=== PATIENT | female | born 1940 | race Caucasian/White ===

== ENCOUNTER 2023-09-04 15:22 | Observation (INO) ==
[2023-09-04] MEDS ORDERED: Ondansetron 4 mg VIAL 2 MG/ML 2 ml VIAL IV ONE (15:56)
[2023-09-04] MEDS ORDERED: Morphine 4 MG/ML VIAL (1 ml) IV ONE (15:56)
[2023-09-04] MEDS ORDERED: NS 0.9% 500 ml BAG 500 ML IV SCH (16:00)
[2023-09-04 16:37] LABS: ABS Lymphocytes 1.1 10^3/uL (1.0-4.8); ABS Monocytes 0.5 10^3/uL (0.0-0.9); ABS Neutrophils 6.8 10^3/uL (1.5-7.6); ABS Nucleated RBC 0.02 10^3/ul; Hematocrit 39.1 % (35-45); Hemoglobin 12.8 g/dL (11.5-14.3); Lymphocyte % 12.5 %; Mean Corpuscular Hemoglobin 25.4 pg (27-33); Mean Corpuscular Hgb Conc 32.7 g/dL (31-36); Mean Corpuscular Volume 77.6 fL (80-97); Mean Platelet Volume 8.5 fL (7.5-11.2); Nucleated Red Blood Cells % 0.2 %/100WBC (0.0-0.8); Platelet Count 508 10^3/uL (150-450); Red Blood Count 5.04 10^6/uL (3.63-4.92); Red Cell Distribution Width 16.3 % (12-17); White Blood Count 8.5 10^3/uL (3.8-11.8)
[2023-09-04 16:49] LABS: Albumin 4.3 g/dL (3.2-5.2); Albumin/Globulin Ratio 1.3 (1-3); Calcium 8.4 mg/dL (8.6-10.3); Creatinine, Serum 1.07 mg/dL (0.51-0.95); Globulin 3.2 g/dL (2-4); Potassium 4.1 mmol/L (3.5-5.0); Total Bilirubin 0.5 mg/dL (0.2-1.0); Total Protein 7.5 g/dL (6.4-8.9); eGFR CKD-EPI 52.2 (>60)
[2023-09-04] MEDS ORDERED: Metoprolol Tartrate 5 mg VIAL 5 ml VIAL (1 mg/ml) IV PRN (18:06)
[2023-09-04] MEDS ORDERED: Morphine 2 MG/ML SYRINGE IV PRN (18:24)
[2023-09-04 18:45] LABS: High Sensitivity Troponin 1 Hr 40 pg/mL (<15)
[2023-09-04 19:36] LABS: Urine Appearance Cloudy; Urine Bilirubin Negative (Negative); Urine Blood Negative (Negative); Urine Color Yellow; Urine Glucose Negative (Negative); Urine Ketones 2+ (Negative); Urine Nitrite Negative (Negative); Urine Protein 1+(30 mg/dL) (Negative); Urine Specific Gravity 1.015 (1.002-1.030); Urine Urobilinogen Negative (Negative)
[2023-09-04 19:59] LABS: Urine Bacteria Absent (Absent); Urine Red Blood Cell Trace(0-2/hpf) (Absent); Urine Squamous Epithelial Cell Present (Absent); Urine White Blood Cell 2+(11-20/hpf) (Absent)
[2023-09-04 20:30] LABS: C Reactive Protein 3.86 mg/L (<8.01); Magnesium 2.6 mg/dL (1.9-2.7)
[2023-09-05 06:44] LABS: ABS Basophils 0.1 10^3/uL (0.0-0.1); ABS Lymphocytes 1.1 10^3/uL (1.0-4.8); ABS Monocytes 0.9 10^3/uL (0.0-0.9); ABS Neutrophils 8.3 10^3/uL (1.5-7.6); Eosinophil % 0.3 %; Hematocrit 35.5 % (35-45); Hemoglobin 11.3 g/dL (11.5-14.3); Lymphocyte % 10.9 %; Mean Corpuscular Hemoglobin 25.2 pg (27-33); Mean Corpuscular Hgb Conc 31.8 g/dL (31-36); Mean Corpuscular Volume 79.2 fL (80-97); Mean Platelet Volume 8.1 fL (7.5-11.2); Platelet Count 381 10^3/uL (150-450); Red Blood Count 4.48 10^6/uL (3.63-4.92); Red Cell Distribution Width 16.4 % (12-17); White Blood Count 10.3 10^3/uL (3.8-11.8)
[2023-09-05 08:22] LABS: Calcium 7.6 mg/dL (8.6-10.3); Magnesium 2.4 mg/dL (1.9-2.7); Potassium 4.2 mmol/L (3.5-5.0); eGFR CKD-EPI 56.6 (>60)
[2023-09-05] MEDS ORDERED: Senna TAB 8.6 mg TAB PO PRN (10:02)
[2023-09-05 10:54] LABS: PCO2 Arterial 21 mmHg (35-45); PO2 Arterial 116 mmHg (80-100)
[2023-09-05] MEDS ORDERED: Lactated Ringers 1000 ml BAG 1,000 ML IV ONE (11:05)
[2023-09-05] MEDS ORDERED: Enoxaparin 40 MG/0.4 ML SYR SUBCUT SCH (16:00)
[2023-09-05 16:02] LABS: Calcium 7.7 mg/dL (8.6-10.3); Creatinine, Serum 1.16 mg/dL (0.51-0.95); Potassium 4.6 mmol/L (3.5-5.0); eGFR CKD-EPI 47.4 (>60)
[2023-09-06 07:11] LABS: Calcium 7.6 mg/dL (8.6-10.3); Creatinine, Serum 1.03 mg/dL (0.51-0.95); Potassium 3.7 mmol/L (3.5-5.0); eGFR CKD-EPI 54.6 (>60)
[2023-09-06] MEDS ORDERED: Polyethylene Glycol 3350 17 GM PACKET PO SCH (09:00)
[2023-09-06 10:23] VITALS: BP 107/51
== END 2023-09-06 14:00 | disposition home or self-care (01) ==
LOC: EDHOLD 15:22 → ED 15:22 → MEDTELE 18:02 → SUATTDRO 18:02 → MEDTELE 22:10
PROVIDERS: ADMIT Internal Medicine; ATTEND Hospitalist

== ENCOUNTER 2023-09-25 19:28 | Inpatient (IN) ==
[2023-09-25] MEDS ORDERED: Lactated Ringers 1000 ml BAG 1,000 ML IV ONE ×2 (19:32→22:48)
[2023-09-25 19:47] LABS: ABS Lymphocytes 1.9 10^3/uL (1.0-4.8); ABS Monocytes 0.6 10^3/uL (0.0-0.9); ABS Nucleated RBC 0.02 10^3/ul; Hematocrit 45.6 % (35-45); Hemoglobin 14.6 g/dL (11.5-14.3); Lymphocyte % 22.2 %; Mean Corpuscular Hemoglobin 26.3 pg (27-33); Mean Corpuscular Hgb Conc 32.1 g/dL (31-36); Mean Corpuscular Volume 82.1 fL (80-97); Nucleated Red Blood Cells % 0.2 %/100WBC (0.0-0.8); Platelet Count 320 10^3/uL (150-450); Red Blood Count 5.56 10^6/uL (3.63-4.92); Red Cell Distribution Width 22.1 % (12-17); White Blood Count 8.5 10^3/uL (3.8-11.8)
[2023-09-25 20:15] LABS: Albumin/Globulin Ratio 1.3 (1-3); C Reactive Protein 3.88 mg/L (<8.01); Calcium 8.4 mg/dL (8.6-10.3); Creatinine, Serum 1.85 mg/dL (0.51-0.95); Globulin 3.1 g/dL (2-4); Magnesium 2.7 mg/dL (1.9-2.7); Potassium 5.1 mmol/L (3.5-5.0); Total Bilirubin 0.6 mg/dL (0.2-1.0); Total Protein 7.1 g/dL (6.4-8.9); eGFR CKD-EPI 27.1 (>60)
[2023-09-25 20:38] LABS: TSH Ultra Thyroid Stim Horm 12.45 mcIU/mL (0.34-5.60)
[2023-09-25 20:49] LABS: Venous Bicarbonate HCO3 13.2 mmol/L (24-28)
[2023-09-25] MEDS ORDERED: Piperacillin/Tazobac 3.375 BAG 3.375 GM/100 ML BAG IV ONE (21:15)
[2023-09-25 21:21] LABS: High Sensitivity Troponin 1 Hr 116 pg/mL (<15)
[2023-09-25 21:22] LABS: Free T4 1.05 ng/dL (0.61-1.12)
[2023-09-25 22:52] LABS: PCO2 Arterial 25 mmHg (35-45); PO2 Arterial 100 mmHg (80-100)
[2023-09-25 23:25] LABS: Calcium 7.8 mg/dL (8.6-10.3); Creatinine, Serum 1.72 mg/dL (0.51-0.95); Potassium 5.1 mmol/L (3.5-5.0); eGFR CKD-EPI 29.5 (>60)
[2023-09-26] MEDS ORDERED: NS 0.9% 1000 ml BAG 1,000 ML IV SCH (01:30)
[2023-09-26] MEDS ORDERED: Enoxaparin 30 MG/0.3 ML SYR SUBCUT SCH (03:30)
[2023-09-26 07:45] LABS: ABS Lymphocytes 0.8 10^3/uL (1.0-4.8); ABS Monocytes 0.8 10^3/uL (0.0-0.9); ABS Nucleated RBC 0.01 10^3/ul; Hematocrit 38.2 % (35-45); Hemoglobin 12.4 g/dL (11.5-14.3); Mean Corpuscular Hgb Conc 32.4 g/dL (31-36); Mean Corpuscular Volume 80.4 fL (80-97); Mean Platelet Volume 8.6 fL (7.5-11.2); Nucleated Red Blood Cells % 0.1 %/100WBC (0.0-0.8); Platelet Count 229 10^3/uL (150-450); Red Blood Count 4.76 10^6/uL (3.63-4.92); Red Cell Distribution Width 21.5 % (12-17); White Blood Count 7.6 10^3/uL (3.8-11.8)
[2023-09-26 08:02] LABS: Calcium 7.2 mg/dL (8.6-10.3); Creatinine, Serum 1.42 mg/dL (0.51-0.95); Potassium 4.5 mmol/L (3.5-5.0); eGFR CKD-EPI 37.2 (>60)
[2023-09-26] MEDS ORDERED: Lactated Ringers 1000 ml BAG 1,000 ML IV SCH (14:00)
[2023-09-27] MEDS: Enoxaparin 30 MG/0.3 ML SYR SUBCUT SCH (05:38)
[2023-09-27 06:21] LABS: ABS Lymphocytes 0.8 10^3/uL (1.0-4.8); ABS Monocytes 0.6 10^3/uL (0.0-0.9); ABS Neutrophils 4.4 10^3/uL (1.5-7.6); Hematocrit 33.5 % (35-45); Hemoglobin 11.1 g/dL (11.5-14.3); Lymphocyte % 14.3 %; Mean Corpuscular Hemoglobin 26.3 pg (27-33); Mean Corpuscular Hgb Conc 33.2 g/dL (31-36); Mean Corpuscular Volume 79.2 fL (80-97); Mean Platelet Volume 8.6 fL (7.5-11.2); Nucleated Red Blood Cells % 0.1 %/100WBC (0.0-0.8); Platelet Count 199 10^3/uL (150-450); Red Blood Count 4.22 10^6/uL (3.63-4.92); White Blood Count 5.9 10^3/uL (3.8-11.8)
[2023-09-27 06:37] LABS: Calcium 6.9 mg/dL (8.6-10.3); Creatinine, Serum 1.07 mg/dL (0.51-0.95); Magnesium 1.9 mg/dL (1.9-2.7); Phosphorus 1.9 mg/dL (2.5-5.0); Potassium 3.5 mmol/L (3.5-5.0); eGFR CKD-EPI 52.2 (>60)
[2023-09-27 07:03] LABS: Folate 8.11 ng/mL (5.90-24.80)
[2023-09-27] MEDS ORDERED: Magnesium Sulfate IV 1GM/100ML 1 GM/100 ML BAG IV ONE (07:36)
[2023-09-27] MEDS: KCL 20 MEQ/100 ML IVPREMIX 20 MEQ/100 ML BAG IV SCH ×2 (08:48→11:14)
[2023-09-27] MEDS ORDERED: Potassium Phosphate IV 15 MMOL in NS 0.9% 250 ml 250 ML IVPB ONE (10:39)
[2023-09-27] MEDS: Potassium & Sodium Phos 250 mg = 1 PACKET PO SCH (20:15)
[2023-09-28 01:02] LABS: Urine Appearance Cloudy; Urine Bilirubin Negative (Negative); Urine Blood Negative (Negative); Urine Color Yellow; Urine Glucose Negative (Negative); Urine Ketones 1+ (Negative); Urine Nitrite Negative (Negative); Urine Protein 1+(30 mg/dL) (Negative); Urine Specific Gravity 1.019 (1.002-1.030); Urine Urobilinogen Negative (Negative)
[2023-09-28 01:29] LABS: Urine Bacteria Absent (Absent); Urine Red Blood Cell Absent (Absent); Urine White Blood Cell Absent (Absent)
[2023-09-28] MEDS: Enoxaparin 30 MG/0.3 ML SYR SUBCUT SCH (05:47)
[2023-09-28 07:08] LABS: ABS Lymphocytes 1.2 10^3/uL (1.0-4.8); ABS Monocytes 0.3 10^3/uL (0.0-0.9); ABS Neutrophils 3.4 10^3/uL (1.5-7.6); Eosinophil % 0.3 %; Hematocrit 28.9 % (35-45); Hemoglobin 9.5 g/dL (11.5-14.3); Lymphocyte % 23.8 %; Mean Corpuscular Hemoglobin 26.2 pg (27-33); Mean Corpuscular Hgb Conc 32.8 g/dL (31-36); Mean Corpuscular Volume 79.8 fL (80-97); Mean Platelet Volume 8.5 fL (7.5-11.2); Platelet Count 143 10^3/uL (150-450); Red Blood Count 3.63 10^6/uL (3.63-4.92); Red Cell Distribution Width 21.3 % (12-17); White Blood Count 4.9 10^3/uL (3.8-11.8)
[2023-09-28] MEDS: Potassium & Sodium Phos 250 mg = 1 PACKET PO SCH ×4 (07:39→20:15)
[2023-09-28 09:05] LABS: Calcium 6.6 mg/dL (8.6-10.3); Creatinine, Serum 0.73 mg/dL (0.51-0.95); Potassium 3.8 mmol/L (3.5-5.0); eGFR CKD-EPI 82.6 (>60)
[2023-09-28 10:30] LABS: Ferritin 28.2 ng/mL (11-307)
[2023-09-28 14:30] LABS: Rapid COVID-19 Molecular Undetected (Undetected)
[2023-09-28] MEDS ORDERED: Potassium Chlor 20 meq TAB.ER PO ONE (14:50)
[2023-09-29] MEDS: Enoxaparin 30 MG/0.3 ML SYR SUBCUT SCH (06:41)
[2023-09-29 06:57] LABS: Hematocrit 30.8 % (35-45); Hemoglobin 10.1 g/dL (11.5-14.3); Mean Corpuscular Hemoglobin 26.1 pg (27-33); Mean Corpuscular Hgb Conc 32.7 g/dL (31-36); Mean Corpuscular Volume 79.8 fL (80-97); Mean Platelet Volume 8.5 fL (7.5-11.2); Platelet Count 146 10^3/uL (150-450); Red Blood Count 3.86 10^6/uL (3.63-4.92); Red Cell Distribution Width 21.8 % (12-17); White Blood Count 4.5 10^3/uL (3.8-11.8)
[2023-09-29 07:13] LABS: Creatinine, Serum 0.66 mg/dL (0.51-0.95); Magnesium 1.9 mg/dL (1.9-2.7); Potassium 4.5 mmol/L (3.5-5.0); eGFR CKD-EPI 88.1 (>60)
[2023-09-29 08:21] LABS: ABS Monocytes 0.3 10^3/uL (0.0-0.9); ABS Neutrophils 3.2 10^3/uL (1.5-7.6); Lymphocyte % 22.8 %; Nucleated Red Blood Cells % 0.1 %/100WBC (0.0-0.8)
[2023-09-29] MEDS ORDERED: Magnesium CITRATE LIQ 300 ML BTL PO PRN (08:47)
[2023-09-29] MEDS ORDERED: Influenza vaccine *QUAD* *2023-24* 0.5 ML SYRINGE IM ONE (09:00)
[2023-09-29] MEDS ORDERED: Magnesium Hydroxide LIQ 30 ML UDC PO SCH (09:00)
[2023-09-29] MEDS: Potassium & Sodium Phos 250 mg = 1 PACKET PO SCH (09:04)
[2023-09-29 10:02] VITALS: BP 98/82
[2023-09-29] MEDS ORDERED: Polyethylene Glycol 3350 17 GM PACKET PO SCH (21:00)
== END 2023-09-29 11:00 | DRG 640 ==
LOC: ED 19:28 → EDHOLD 19:28 → SUATTDRO 23:22 → EDHOLD 09-26 08:03 → MEDTELE 09-26 09:11
PROVIDERS: ADMIT Hospitalist; ATTEND Hospitalist